=== PATIENT | female | born 1935 | race Caucasian/White ===

== ENCOUNTER 2017-01-01 09:20 | Emergency (ER) | payer MEDICARE, MEDICAID ==
[~2017-01-01] VITALS: Ht 175.3 cm; Wt 123.0 kg
[~2017-01-01 09:20] MED LIST: ACET325T38 PO; ALPR0.5T72 PO; APIX2.5T PO; APIX5TAB PO; ASP325TEC PO; ASP81CT PO; ASPI-9 PO; BUPR100T15 PO; CALC-656 PO; CALC625T66 PO; CHOL100011 PO; CHOL2000 PO; CITA10TA PO; CITA10TA70 PO; CITA20TA7 PO; CLIN300C3 PO; CNC1KV IJ; CND32T; CODE118S2 PO; CYAN100053 IJ; CYAN10007 IM; CYCL10TA9 PO; DIVA125C10 PO; DNPZ10T PO; DONE10TA41 PO; DVL125C PO; E400C PO; FIBER THERAPY PO; FLC100T1 PO; FLUT1DIS26; FLUT1DIS26 IH; GLIP-173 PO; GLIP10TA13; GLPZ10TCR PO; HYDR-34 PO; HYDR1TAB PO; INSASP10V SC; INSU100I10 SQ; INSU100I23 SQ; INSU100I29 SQ; INSU100V SQ; INSU100V6 SC; IPRA3AMP IH; IPRA3AMP19 IH; LACT1TAB13 PO; LEVE1U SQ; LEVO175T3 PO; LEVO175T5 PO; LEVO500T2 PO; LNS30CCR PO; LORA-794 PO; LORA0.5T PO; LVT.05T PO; METO-272 PO; METO-333 PO; METO25TA2 PO; METO50TA2 PO; MTP50T; MULT-608 PO; MULT-974 PO; NITR100C; OCCUVITE PO; OMEP20CA12 PO; OMEP20TA2 PO; ONDA4TAB8 PO; OSLT75CRX PO; OXYB15TA; OXYB5TAB9 PO; Oxygen; PHEN-640 PO; POLY17PO6 PO; PROP1TAB77 PO; SENN1TAB66 PO; SIMV40TA4 PO; TRAM-21 PO; TRAM50TA2 PO; VIT1TABL26 PO; VNL75CCR PO; WARF5TAB PO; WARF5TAB6 PO; WRF2.5T PO; WRF5T; WRF5T PO; [UNRECOGNIZED DRUG - CODE] MC
--- NOTE | 2017-01-01 10:18 | ED Lower Extremity ---
General Chief Complaint: Lower Extremity Stated Complaint: R ANKLE PAIN Nursing Triage Note: PT REPORTS SHE FELL YESTERDAY AND HURT HER R ANKLE. PT REPORTS PAIN HAS CONTINUED AND SHE HAS SWELLING TO R FOOT. PT DENIES HITTING HEAD OR LOC. Nursing Sepsis Screen: No Definite Risk Source: patient, family, EMS Exam Limitations: no limitations History of Present Illness Time seen by provider: 10:13 Initial Comments The patient is an 81-year-old intermediate resident known to me for many years. She apparently rolled her right ankle while still in the facility but going to [facility] on Monday. She did not fall to the floor as she was caught by staff. She however complained of ankle pain. They now note discoloration as well. Onset: last week Pain/Injury Location: right ankle Method of Injury: twisted Allergies and Home Medications Allergies Coded Allergies: Sulfa (Sulfonamide Antibiotics) (Verified Allergy, Unknown, 05/30/06) codeine (Verified Allergy, Unknown, 05/30/06) Home Medications Acetaminophen 325 Mg Tablet, 650 MG PO Q4H PRN for PAIN OR FEVER, (Reported) TAKES 2 (325MG) TABLETS Apixaban 5 Mg Tablet, 5 MG PO BID, (Reported) Bupropion HCl 100 Mg Tablet, 100 MG PO BID, (Reported) Cholecalciferol 1,000 Unit Capsule, 1,000 UNIT PO DAILY, (Reported) Cyanocobalamin 1,000 Mcg/Ml Inj, 1,000 MCG IJ MONTHLY, (Reported) Divalproex Sodium 125 Mg Cap.sprink, 125 MG PO QID, (Reported) Donepezil HCl 10 Mg Tablet, 10 MG PO HS, (Reported) Fluticasone/Salmeterol 1 Each Blst.w.dev, 1 PUFF IH BID, (Reported) Glipizide 10 Mg Tab.er.24, 10 MG PO DAILY, (Reported) Insulin Detemir 100 Unit/1 Ml Insuln.pen, 35 UNITS SQ HS, (Reported) Insulin Lispro 100 Unit/1 Ml Vial, 6 UNITS SQ AC, (Reported) Ipratropium/Albuterol Sulfate 3 Ml Ampul.neb, 3 ML IH RTQ2H PRN for SOA, #30 Prescribed by: PEPE HARMON on 04/08/16 0929 Lactobacillus Acidophilus 1 Each Tablet, 1 EACH PO TID, #30 Prescribed by: PEPE HARMON on 04/08/16928 Levofloxacin 500 Mg Tablet, 500 MG PO DAILY, #4 Prescribed by: PEPE HARMON on 04/08/16928 Levothyroxine Sodium 175 Mcg Tablet, 175 MCG PO DAILY, (Reported) Metoprolol Tartrate 50 Mg Tablet, 50 MG PO BID, (Reported) Multivitamin 1 Each Tablet, 1 TAB PO DAILY, (Reported) Omeprazole 20 Mg Capsule.dr, 20 MG PO DAILY, (Reported) Oxybutynin Chloride 5 Mg Tablet, 5 MG PO TID, (Reported) Phenazopyridine HCl 200 Mg Tablet, 200 MG PO TID PRN for URINARY PAIN, (Reported ) Polyethylene Glycol 3350 17 Gm Powd.pack, 17 GM PO Q48H, (Reported) GIVE AT 1700 Promethazine HCl/Codeine 118 Ml Syrup, 5-10 ML PO Q6HR PRN for COUGH, #8 Prescribed by: PEPE HARMON on 04/08/16928 Tramadol HCl 50 Mg Tablet, 50 MG PO DAILY, (Reported) Vit A,C & E/Lutein/Minerals 1 Each Tablet, 1 TAB PO DAILY, (Reported) Constitutional: see HPI EENTM: no symptoms reported Respiratory: no symptoms reported Cardiovascular: no symptoms reported Gastrointestinal: no symptoms reported Genitourinary: no symptoms reported Musculoskeletal: see HPI, joint pain, joint swelling Skin: change in color (right ankle) Psychiatric/Neurological: Other (poor memory) Past Idjfiym-Rzqahv-Sdhlho Hx Patient Social History Alcohol Use: Denies Use Recreational Drug Use: No Smoking Status: Former Smoker Type Used: Cigarettes Former Smoker/When Quit: Aug 23, 1974 2nd Hand Smoke Exposure: No Recent Foreign Travel: No Contact w/Someone Who Travel: No Recent Infectious Disease Expo: No Recent Hopitalizations: No (SURGERY BOTH KNEES, BOTH HIPS, CAATARACT SURGERY) Immunizations Up To Date Date of Pneumonia Vaccine: Mar 19, 2010 Date of Influenza Vaccine: Mar 04, 2016 Seasonal Allergies Seasonal Allergies: No Surgeries HX Surgeries: Yes (SURGERY BOTH KNEES, BOTH HIPS, CATARACT SURGERY) Surgeries: Appendectomy, Cardiac, CABG, Gallbladder, Hysterectomy, Joint Replacement Respiratory Hx Respiratory Disorders: Yes Respiratory Disorders: Pneumonia, COPD Cardiovascular Hx Cardiac Disorders: Yes (CABG) Cardiac Disorders: Coronary Artery Disease, High Cholesterol, Hypertension Neurological Hx Neurological Disorders: Yes Neurological Disorders: Dementia Reproductive System Hx Reproductive Disorders: No Sexually Transmitted Disease: No HIV/AIDS: No Female Reproductive Disorders: Denies BELL STAFF History: Hysterectomy Genitourinary Hx Genitourinary Disorders: Yes (STRESS INCONTINENCE) Gastrointestinal Hx Gastrointestinal Disorders: Yes Gastrointestinal Disorders: Gastroesophageal Reflux Musculoskeletal Hx Musculoskeletal Disorders: Yes Musculoskeletal Disorders: Arthritis Endocrine Hx Endocrine Disorders: Yes Endocrine Disorders: Diabetes, Insulin dep, Hypothyroidsim HEENT HX ENT Disorders: No Loss of Vision: Denies Hearing Impairment: Denies Cancer Hx Cancer: No Psychosocial Hx Psychiatric Problems: Yes Integumentary HX Skin/Integumentary Disorder: No Blood Transfusions Hx Blood Disorders: No Adverse Reaction to a Blood Tr: Yes Family Medical History Significant Family History: Heart Disease, Cancer, Hypertension Family Medial History: FHx: cancer G8 SISTER (PATIENT STATES THAT HER SISTER "HAD CANCER ALL OVER") Prostate cancer G8 BROTHER Physical Exam Vital Signs Vital Sign - Last 12Hours 01/01/17 09:30 Temp 97.9 Pulse 119 Resp 18 B/P (MAP) 171/93 Pulse Ox 95 Capillary Refill : Less Than 3 Seconds General Appearance: mild distress HEENT: normal ENT inspection Neck: full range of motion Cardiovascular: normal peripheral pulses, regular rate, rhythm, no edema, no gallop, no JVD, no murmur Respiratory: chest non-tender, lungs clear, normal breath sounds, no respiratory distress, no accessory muscle use Gastrointestinal: normal bowel sounds, non tender, soft, no organomegaly, no pulsatile mass Neurologic/Psychiatric: no motor/sensory deficits, alert, normal mood/affect Comments There are bilateral flatfeet. Bunions and hammertoes are noted. Multiple superficial skin NICKS are noted over the toes. There is 1+ swelling over the right ankle. There is redness and warmth from the ankle joint to a crew sock height. No ecchymosis is noted. Progress/Results/Core Measures Results/Orders Lab Results Laboratory Tests Test 01/01/17 09:35 01/01/17 11:05 Range/Units White Blood Count 10.5 4.3-11.0 10^3/uL Red Blood Count 4.19 L 4.35-5.85 10^6/uL Hemoglobin 11.4 L 11.5-16.0 G/DL Hematocrit 37 35-52 % Mean Corpuscular Volume 88 80-99 FL Mean Corpuscular Hemoglobin 27 25-34 PG Mean Corpuscular Hemoglobin Concent 31 L 32-36 G/DL Red Cell Distribution Width 16.2 H 10.0-14.5 % Platelet Count 215 130-400 10^3/uL Mean Platelet Volume 11.6 H 7.4-10.4 FL Neutrophils (%) (Auto) 70 42-75 % Lymphocytes (%) (Auto) 12 12-44 % Monocytes (%) (Auto) 18 H 0-12 % Eosinophils (%) (Auto) 1 0-10 % Basophils (%) (Auto) 0 0-10 % Neutrophils # (Auto) 7.4 1.8-7.8 X 10^3 Lymphocytes # (Auto) 1.3 1.0-4.0 X 10^3 Monocytes # (Auto) 1.9 H 0.0-1.0 X 10^3 Eosinophils # (Auto) 0.1 0.0-0.3 10^3/uL Basophils # (Auto) 0.0 0.0-0.1 10^3/uL Sodium Level 141 135-145 MMOL/L Potassium Level 3.8 3.6-5.0 MMOL/L Chloride Level 95 L 98-107 MMOL/L Carbon Dioxide Level 33 H 21-32 MMOL/L Anion Gap 13 5-14 MMOL/L Blood Urea Nitrogen 13 7-18 MG/DL Creatinine 0.73 0.60-1.30 MG/DL Estimat Glomerular Filtration Rate > 60 BUN/Creatinine Ratio 18 Glucose Level 251 H 70-105 MG/DL Calcium Level 8.7 8.5-10.1 MG/DL Total Bilirubin 1.2 H 0.1-1.0 MG/DL Aspartate Amino Transf (AST/SGOT) 13 5-34 U/L Alanine Aminotransferase (ALT/SGPT) 16 0-55 U/L Alkaline Phosphatase 57 40-136 U/L Total Protein 5.8 L 6.4-8.2 GM/DL Albumin 3.6 3.2-4.5 GM/DL My Orders Orders - IAIN VANEGAS MD Cbc With Automated Diff (01/01/17 10:11) Comprehensive Metabolic Panel (01/01/17 10:11) Ua Culture If Indicated (01/01/17 10:11) Ankle, Right, 3 Views (01/01/17 10:11) Vital Signs/I&O Vital Sign - Last 12Hours 01/01/17 09:30 Temp 97.9 Pulse 119 Resp 18 B/P (MAP) 171/93 Pulse Ox 95 Blood Pressure Mean: 119 Departure Communication Progress Notes My interpretation and subsequent radiology report indicates distal right fibular fracture. Impression Impression: Primary Impression: right distal fibula fracture Disposition: HOME, SELF-CARE Condition: Stable/Unchanged Departure-Patient Inst. Decision time for Depature: 11:22 Referrals: PEPE HARMON MD (PCP/Family) Primary Care Physician Patient Instructions: Ankle Fracture (DC) Add. Discharge Instructions: All discharge instructions reviewed with patient and/or family. Voiced understanding. Use boot when up and about. It will take 6 weeks or thereabouts for this to heal. Use Tylenol 650 up to 3 g daily for pain as needed IAIN VANEGAS MD Jan 01, 2017 10:18
[2017-01-01 10:22] LABS: BASOPHILS % (AUTO) 0 % (0-10); EOSINOPHILS # (AUTO) 0.1 10^3/uL (0.0-0.3); EOSINOPHILS % (AUTO) 1 % (0-10); LYMPHOCYTES # (AUTO) 1.3 X 10^3 (1.0-4.0); LYMPHOCYTES % (AUTO) 12 % (12-44); MEAN CORPUSCULAR HEMOGLOBIN 27 PG (25-34); MEAN CORPUSCULAR HGB CONC 31 G/DL (32-36); MEAN CORPUSCULAR VOLUME 88 FL (80-99); MEAN PLATELET VOLUME 11.6 FL (7.4-10.4); MONOCYTES # (AUTO) 1.9 X 10^3 (0.0-1.0); MONOCYTES % (AUTO) 18 % (0-12); NEUTROPHILS # (AUTO) 7.4 X 10^3 (1.8-7.8); NEUTROPHILS % (AUTO) 70 % (42-75); PLATELET COUNT 215 10^3/uL (130-400); RED BLOOD COUNT 4.19 10^6/uL (4.35-5.85); RED CELL DISTRIBUTION WIDTH 16.2 % (10.0-14.5); WHITE BLOOD COUNT 10.5 10^3/uL (4.3-11.0)
[2017-01-01 10:31] LABS: ALANINE AMINOTRANSFERASE 16 U/L (0-55); ALBUMIN 3.6 GM/DL (3.2-4.5); ANION GAP 13 MMOL/L (5-14); ASPARTATE AMINO TRANSFERASE 13 U/L (5-34); BILIRUBIN,TOTAL 1.2 MG/DL (0.1-1.0); BLOOD UREA NITROGEN 13 MG/DL (7-18); BUN/CREATININE RATIO 18; CALCIUM 8.7 MG/DL (8.5-10.1); CARBON DIOXIDE 33 MMOL/L (21-32); CHLORIDE 95 MMOL/L (98-107); CREATININE SERUM 0.73 MG/DL (0.60-1.30); GFR ESTIMATED > 60; GLUCOSE 251 MG/DL (70-105); POTASSIUM 3.8 MMOL/L (3.6-5.0); SODIUM 141 MMOL/L (135-145); TOTAL PROTEIN 5.8 GM/DL (6.4-8.2)
--- NOTE | 2017-01-01 10:54 | Diagnostic Imaging Report ---
INDICATION: Right ankle pain 3 views of the right ankle show a nondisplaced oblique fracture of the distal fibula. The medial malleolus appears to be grossly intact. IMPRESSION: Nondisplaced oblique fracture of the distal fibula Dictated by: Dictated on workstation # [id number]
[2017-01-01 11:29] LABS: BILIRUBIN,URINE 1+ (NEGATIVE); KETONES,URINE 2+ (NEGATIVE); LEUKOCYTE ESTERASE ,URINE 2+ (NEGATIVE); NITRITE,URINE POSITIVE (NEGATIVE); PH,URINE 6 (5-9); PROTEIN,URINE 2+ (NEGATIVE); UROBILINOGEN,URINE 4 MG/DL (NORMAL)
[2017-01-01] MEDS ORDERED: CEFD300C3 PO (12:44)
[2017-01-01 13:07] VITALS: BP 156/90
== END 2017-01-01 13:07 | disposition home or self-care (01) ==
LOC: EDUNIT# 09:20 → ER 09:21
DX: S82.831A Other fracture of upper and lower end of right fibula, initial encounter for closed fracture (principal); X50.0XXA Overexertion from strenuous movement or load, initial encounter; Y92.89 Other specified places as the place of occurrence of the external cause
CPT/HCPCS: 36415; 73610; 80053; 81000; 85025; 87088; 87186; 99283

== ENCOUNTER 2017-05-04 13:16 | Emergency (ER) | payer MEDICARE, MEDICAID ==
[~2017-05-04] VITALS: Ht 175.3 cm; Wt 123.0 kg
[~2017-05-04 13:16] MED LIST changes: +CEFD300C3 PO
[2017-05-04] MEDS ORDERED: TETANUS,DIPTH,PERTUSS P/F (BOOSTRIX) 0.5 ML VIAL IM STA (13:31)
--- NOTE | 2017-05-04 13:38 | ED Head Injury ---
General Chief Complaint: Trauma-Non Activation Stated Complaint: FALL Nursing Triage Note: PT TO [facility] WITH CC OF SAME LEVEL FALL WITH LAC TO POSTERIOR HEAD, NO BLEEDING AT THIS TIME. PT DENIES NECK OR BACK PAIN. DENIES ANY LOC. STAFF AT [facility] TOLD EMS THAT THE PT HAS NOT BEEN FEELING WELL FOR A COUPLE DAYS, COUGHING. Source: patient, EMS Exam Limitations: no limitations History of Present Illness Time seen by provider: 13:20 Initial Comments 81-year-old female patient presents to the emergency department via EMS with complaints of fall at the assisted living facility. Patient reportedly has a laceration to the left posterior scalp. Denies neck or back pain. Patient does have chronic lung disease and normally wears 2 L of oxygen at the facility. Patient apparently has not been feeling well for the last couple of days with cough and congestion. Patient denies shortness of air, chest pain, fever, headache. Occurred: just prior to arrival Location: occipital Method of Injury: fell Loss of Consciousness: no loss of consciousness Allergies and Home Medications Allergies Coded Allergies: Sulfa (Sulfonamide Antibiotics) (Verified Allergy, Unknown, 05/30/06) codeine (Verified Allergy, Unknown, 05/30/06) Home Medications Acetaminophen 325 Mg Tablet, 650 MG PO Q4H PRN for PAIN OR FEVER, (Reported) TAKES 2 (325MG) TABLETS Apixaban 5 Mg Tablet, 5 MG PO BID, (Reported) Bupropion HCl 100 Mg Tablet, 100 MG PO BID, (Reported) Cefdinir 300 Mg Capsule, 300 MG PO TWICE A DAY, #14 Prescribed by: IAIN VANEGAS on 01/01/17 1244 Cholecalciferol 1,000 Unit Capsule, 1,000 UNIT PO DAILY, (Reported) Cyanocobalamin 1,000 Mcg/Ml Inj, 1,000 MCG IJ MONTHLY, (Reported) Divalproex Sodium 125 Mg Cap.sprink, 125 MG PO QID, (Reported) Donepezil HCl 10 Mg Tablet, 10 MG PO HS, (Reported) Fluticasone/Salmeterol 1 Each Blst.w.dev, 1 PUFF IH BID, (Reported) Glipizide 10 Mg Tab.er.24, 10 MG PO DAILY, (Reported) Insulin Detemir 100 Unit/1 Ml Insuln.pen, 35 UNITS SQ HS, (Reported) Insulin Lispro 100 Unit/1 Ml Vial, 6 UNITS SQ AC, (Reported) Ipratropium/Albuterol Sulfate 3 Ml Ampul.neb, 3 ML IH RTQ2H PRN for SOA, #30 Prescribed by: PEPE HARMON on 04/08/16928 Lactobacillus Acidophilus 1 Each Tablet, 1 EACH PO TID, #30 Prescribed by: PEPE HARMON on 04/08/16928 Levofloxacin 500 Mg Tablet, 500 MG PO DAILY, #4 Prescribed by: PEPE HARMON on 04/08/16928 Levothyroxine Sodium 175 Mcg Tablet, 175 MCG PO DAILY, (Reported) Metoprolol Tartrate 50 Mg Tablet, 50 MG PO BID, (Reported) Multivitamin 1 Each Tablet, 1 TAB PO DAILY, (Reported) Omeprazole 20 Mg Capsule.dr, 20 MG PO DAILY, (Reported) Oxybutynin Chloride 5 Mg Tablet, 5 MG PO TID, (Reported) Phenazopyridine HCl 200 Mg Tablet, 200 MG PO TID PRN for URINARY PAIN, (Reported ) Polyethylene Glycol 3350 17 Gm Powd.pack, 17 GM PO Q48H, (Reported) GIVE AT 1700 Promethazine HCl/Codeine 118 Ml Syrup, 5-10 ML PO Q6HR PRN for COUGH, #8 Prescribed by: PEPE HARMON on 04/08/16928 Tramadol HCl 50 Mg Tablet, 50 MG PO DAILY, (Reported) Vit A,C & E/Lutein/Minerals 1 Each Tablet, 1 TAB PO DAILY, (Reported) Constitutional: No dizziness, No fever, malaise Eyes: Denies Blurred Vision, Denies Drainage, Denies Decreased Acuity, Denies Vision Changes, Glasses Ears, Nose, Mouth, Throat: denies ear pain, denies ear discharge, denies nose pain, denies epistaxis, denies mouth pain, denies throat pain Respiratory: cough, phlegm, No short of breath, No stridor, wheezing Cardiovascular: No chest pain, No palpitations, No syncope Gastrointestinal: No abdominal pain, No constipation, No diarrhea, No nausea, No vomiting Genitourinary: no symptoms reported Musculoskeletal: No back pain, No joint pain, No neck pain Skin: see HPI Psychiatric/Neurological: Denies Cognitive Dysfunction, Denies Headache, Denies Numbness, Denies Tingling, Denies Unable to Move Lower Ext, Denies Unable to Move Upper Ext, Denies Weakness, Denies Other (denies seizure) All Other Systems Reviewed Negative Unless Noted: Yes (Negative excepted noted.) Past Pdqubiq-Ubhqbk-Gdfalw Hx Patient Social History Type Used: Cigarettes Former Smoker, Quit: Oct 09, 1985 2nd Hand Smoke Exposure: No Recent Foreign Travel: No Contact w/Someone Who Travel: No Recent Infectious Disease Expo: No Recent Hopitalizations: No (SURGERY BOTH KNEES, BOTH HIPS, CAATARACT SURGERY) Immunizations Up To Date Tetanus Booster (TDap): Unknown Date of Pneumonia Vaccine: Mar 19, 2010 Date of Influenza Vaccine: Mar 04, 2016 Seasonal Allergies Seasonal Allergies: No Surgeries History of Surgeries: Yes (SURGERY BOTH KNEES, BOTH HIPS, CATARACT SURGERY) Surgeries: Appendectomy, Cardiac, CABG, Gallbladder, Hysterectomy, Joint Replacement Respiratory History of Respiratory Disorde: Yes Respiratory Disorders: Pneumonia, COPD Currently Using CPAP: Yes Currently Using BIPAP: No Cardiovascular History of Cardiac Disorders: Yes (CABG) Cardiac Disorders: Coronary Artery Disease, High Cholesterol, Hypertension Neurological History of Neurological Disord: Yes Neurological Disorders: Dementia Reproductive System Hx Reproductive Disorders: No Sexually Transmitted Disease: No HIV/AIDS: No Female Reproductive Disorders: Denies [employer] History: Hysterectomy Gastrointestinal History of Gastrointestinal Di: Yes Gastrointestinal Disorders: Gastroesophageal Reflux Musculoskeletal History of Musculoskeletal Dis: Yes Musculoskeletal Disorders: Arthritis Endocrine History of Endocrine Disorders: Yes Endocrine Disorders: Diabetes, Insulin dep, Hypothyroidsim HEENT Loss of Vision: Denies Hearing Impairment: Denies Cancer History of Cancer: No Psychosocial History of Psychiatric Problem: Yes Integumentary History of Skin or Integumenta: No Blood Transfusions History of Blood Disorders: No Adverse Reaction to a Blood Tr: Yes Reviewed Nursing Assessment Reviewed/Agree w Nursing PMH: Yes Family Medical History Significant Family History: Heart Disease, Cancer, Hypertension Family Medial History: FHx: cancer G8 SISTER (PATIENT STATES THAT HER SISTER "HAD CANCER ALL OVER") Prostate cancer G8 BROTHER Physical Exam Vital Signs Vital Sign - Last 12Hours 05/04/17 13:20 Temp 97.8 Pulse 110 Resp 20 B/P (MAP) 136/100 Pulse Ox 97 O2 Delivery Nasal Cannula O2 Flow Rate 2.00 Capillary Refill : Less Than 3 Seconds General Appearance: WD/WN, no apparent distress HEENT: PERRL/EOMI, normal ENT inspection, TMs normal, pharynx normal Neck: non-tender, full range of motion, supple, normal inspection Cardiovascular: normal peripheral pulses, no murmur, tachycardia Respiratory: chest non-tender, no respiratory distress, no accessory muscle use , decreased breath sounds, crackles Gastrointestinal: normal bowel sounds, non tender, soft, no organomegaly, No distended Back: normal inspection, no vertebral tenderness Extremities: normal range of motion, non-tender, normal inspection, normal capillary refill, pelvis stable, pedal edema (2+ pedal edema bilaterally to the level of the tibial tuberosity.) Psychiatric: alert, oriented x 3 Crainal Nerves: normal speech, PERRL, other (chronic [place].) Motor/Sensory: no motor deficit, no sensory deficit, no pronator drift Skin: normal color, warm/dry, other (1 cm laceration posterior left scalp) Terrie Coma Score Best Eye Response: (4) Open Spontaneously Best Verbal Response: (5) Oriented Best Motor Response: (6) Obeys Commands Terrie Total: 15 Laceration Repair : Wound Location: Scalp Wound Length (cm): 1 Wound's Depth, Shape: superficial, linear, contused tissue Wound Explored: clean Betadine Prep?: No (scrubbed with chlorasept and sterile saline) Staple Repair: Stapler 35W Sterile Dressing Applied?: Yes Progress 1 staple placed. wound dressed with 4x4 gauze and gauze roll. patient tolerated the procedure well. blood loss minimal. Progress/Results/Core Measures Results/Orders Lab Results Laboratory Tests Test 05/04/17 13:30 05/04/17 14:20 Range/Units White Blood Count 8.3 4.3-11.0 10^3/uL Red Blood Count 4.39 4.35-5.85 10^6/uL Hemoglobin 11.9 11.5-16.0 G/DL Hematocrit 39 35-52 % Mean Corpuscular Volume 88 80-99 FL Mean Corpuscular Hemoglobin 27 25-34 PG Mean Corpuscular Hemoglobin Concent 31 L 32-36 G/DL Red Cell Distribution Width 16.7 H 10.0-14.5 % Platelet Count 238 130-400 10^3/uL Mean Platelet Volume 10.5 H 7.4-10.4 FL Neutrophils (%) (Auto) 63 42-75 % Lymphocytes (%) (Auto) 22 12-44 % Monocytes (%) (Auto) 12 0-12 % Eosinophils (%) (Auto) 2 0-10 % Basophils (%) (Auto) 1 0-10 % Neutrophils # (Auto) 5.2 1.8-7.8 X 10^3 Lymphocytes # (Auto) 1.8 1.0-4.0 X 10^3 Monocytes # (Auto) 1.0 0.0-1.0 X 10^3 Eosinophils # (Auto) 0.2 0.0-0.3 10^3/uL Basophils # (Auto) 0.1 0.0-0.1 10^3/uL Sodium Level 144 135-145 MMOL/L Potassium Level 3.7 3.6-5.0 MMOL/L Chloride Level 93 L 98-107 MMOL/L Carbon Dioxide Level 40 H 21-32 MMOL/L Anion Gap 11 5-14 MMOL/L Blood Urea Nitrogen 13 7-18 MG/DL Creatinine 0.92 0.60-1.30 MG/DL Estimat Glomerular Filtration Rate 58 BUN/Creatinine Ratio 14 Glucose Level 218 H 70-105 MG/DL Calcium Level 9.1 8.5-10.1 MG/DL Total Bilirubin 0.6 0.1-1.0 MG/DL Aspartate Amino Transf (AST/SGOT) 16 5-34 U/L Alanine Aminotransferase (ALT/SGPT) 12 0-55 U/L Alkaline Phosphatase 56 40-136 U/L Total Protein 6.4 6.4-8.2 GM/DL Albumin 3.5 3.2-4.5 GM/DL Thyroid Stimulating Hormone (TSH) 0.93 0.35-4.94 UIU/ML Valproic Acid (Depakene) Level 39.7 L 50.0-100.0 UG/ML Urine Color YELLOW Urine Clarity VERY CLOUDY H Urine pH 6.5 5-9 Urine Specific [place] 1.015 L 1.016-1.022 Urine Protein 2+ H NEGATIVE Urine Glucose (UA) NEGATIVE NEGATIVE Urine Ketones 1+ H NEGATIVE Urine Nitrite NEGATIVE NEGATIVE Urine Bilirubin NEGATIVE NEGATIVE Urine Urobilinogen 4 H NORMAL MG/DL Urine Leukocyte Esterase 1+ H NEGATIVE Urine RBC (Auto) 2+ H NEGATIVE Urine RBC NONE /HPF Urine WBC 10-25 H /HPF Urine Crystals NONE /LPF Urine Bacteria LARGE H /HPF Urine Casts NONE /LPF Urine Mucus NEGATIVE /LPF Urine Culture Indicated YES My Orders Orders - ULISSES FITZPATRICK PA Cbc With Automated Diff (05/04/17 13:25) Comprehensive Metabolic Panel (05/04/17 13:25) Ua Culture If Indicated (05/04/17 13:25) Saline Lock/Iv-Start (05/04/17 13:25) Ct Head/Cervical Spine Wo (05/04/17 13:25) Chest 1 View, Ap/Pa Only (05/04/17 13:25) Valproic Acid (05/04/17 13:31) Dipht,Pertuss(Acell),Tet Adult (Boostrix (05/04/17 13:31) Thyroid Stimulating Hormone (05/04/17 13:32) Catheter(Urinary) Insert & Ass 03,15 (05/04/17 14:15) Urine Culture (05/04/17 14:20) Ondansetron Injection (Zofran Injectio (05/04/17 15:00) Ns Iv 1000 Ml (Sodium Chloride 0.9%) (05/04/17 14:58) Medications Given in ED Current Medications Medications Dose Ordered Sig/Sarah Route Start Time Stop Time Status Last Admin Dose Admin Ondansetron HCl 4 mg ONCE ONCE IVP 05/04/17 15:00 05/04/17 15:01 DC 05/04/17 15:05 4 MG Sodium Chloride 1,000 ml @ 0 mls/hr Q0M ONCE IV 05/04/17 14:58 05/04/17 14:59 DC 05/04/17 15:05 100 MLS/HR Vital Signs/I&O Vital Sign - Last 12Hours 05/04/17 05/04/17 05/04/17 13:20 14:41 15:15 Temp 97.8 97.8 97.5 Pulse 110 107 Resp 20 18 B/P (MAP) 136/100 Pulse Ox 97 98 O2 Delivery Nasal Cannula Nasal Cannula O2 Flow Rate 2.00 2.00 Blood Pressure Mean: 112 Diagnostic Imaging Diagonstic Imaging: CT Plain Films/CT/US/NM/MRI: c-spine, head Comments CT HEAD: The previous CT head exam performed on 08/23/2014 failed to show any sign of an acute intracranial abnormality. On this study, there is now a sizable area of soft tissue edema and perhaps hematoma formation along the periphery of the left parietal bone near the vertex of the skull. The bone windows show no sign of a skull fracture in this area. However, there does appear to be a small amount of hemorrhage in the extra-axial space along the periphery of the RIGHT parietal lobe at the level of the lateral ventricles. This suspected area of hemorrhage measures 6 x 30 mm in maximum transverse and AP dimensions. I suspect that this is in the subdural space and not epidural in nature. There is no parenchymal hemorrhage identified. The ventricles are not abnormally dilated and stable in size when compared to the prior exam. The cortical atrophy seen previously and the suspected areas of encephalomalacia in the periventricular white matter are also again evident and no different. The orbits are symmetrical and within normal limits. The sinuses where visualized are clear. IMPRESSION: 1. There is considerable edema/inflammation and perhaps hematoma formation involving the scalp over the left parietal bone. There is no sign of a fracture in this area, but there does appear to be a small amount of acute hemorrhage in the subdural space along the periphery of the right parietal lobe posteriorly. A short-term (less than 24 hours) follow-up CT head exam would be recommended for continued evaluation. 2. There is no acute intracranial abnormality noted otherwise. 3. These results will be discussed with CAMRON Mccurdy. CRITICAL FINDING CT CERVICAL SPINE: This exam is less than optimal due to motion artifact. The parasagittal images show severe degenerative disc and bony disease at C5-6 and C6-7 and to a lesser degree at C4 -5. There does not appear to be any high-grade central stenosis at any of these three levels. There is no fracture or acute bony abnormality appreciated. There is no sign of retropharyngeal edema. The thyroid gland was not well visualized. The lung apices are generally clear. IMPRESSION: 1. There is no evidence for an acute bony abnormality on this suboptimal exam. 2. These results will be discussed with CAMRON Mccurdy. Dictated on workstation # [id number] Reviewed: Discussed w/Radiologist (discussed with BAIRON Hancock and report reviewed by me) Diagonstic Imaging: Xray Plain Films/CT/US/NM/MRI: chest Comments FINDINGS: There are low lung volumes with cardiomegaly and pulmonary vascular congestion. Bibasilar infiltrates and effusions, left greater than right, also noted with edema seen throughout both lungs. There is no pneumothorax. Increased density seen about the right shoulder, stable from previous, perhaps loose bodies within the subcoracoid recess. IMPRESSION: 1. Findings of pulmonary edema with bibasilar atelectasis. 2. Bibasilar infiltrates and effusions, left worse than right. Followup recommended. Dictated by: Dictated on workstation # [id number] Reviewed: Reviewed by Me Departure Communication (Admissions) Progress Notes 1410 CT Head findings discussed with Dr. Hancock with findings concerning for subdural hematoma when compared with previous CT head. Recommends repeat CT head in 24 hours. 1415 Patient case discussed with Dr. Stark including history, vital signs, exam findings, laboratory findings, and diagnostic study findings. Dr. Stark recommends transfer to [facility] for further evaluation and management of subdural hematoma. 1425 patient is alert and oriented 3. NAD. CN 2-12 intact. No motor or sensory deficits noted. Diagnostic and laboratory findings discussed with the patient and family (son and grandson) at bedside. I discussed plan for transfer to [facility]. All verbalize understanding and agree with treatment plan. Patient denies pain. GCS 15. NAD. CN 2-12 intact. No motor or sensory deficits noted. 1440 laceration repair performed. GCS 15. Patient alert and oriented x3. NAD. Cranial nerves II through XII intact. No motor or sensory deficits noted. Proceed with transfer. 1515 EMS here to transfer patient. Patient A/Ox3, NAD. Cranial nerves II through XII intact. No motor or sensory deficits noted Impression Impression: Primary Impression: Acute subdural hematoma Additional Impressions: Laceration of scalp Qualified Codes: S01.01XA - Laceration without foreign body of scalp, initial encounter Fall Qualified Codes: W19.XXXA - Unspecified fall, initial encounter Pneumonia Qualified Codes: J18.9 - Pneumonia, unspecified organism Disposition: 02 XFER SHT-TRM HOSP Condition: Stable Transfer Time Spoke to Accepting Phy: 14:[address] Ojeda accepts patient to his service for subdural hematoma. Transfer Time: 15:15 Transfer Facility: [facility] Departure-Patient Inst. Referrals: PEPE HARMON MD (PCP/Family) Primary Care Physician ULISSES FITZPATRICK May 04, 2017 13:38
[2017-05-04 13:39] LABS: BASOPHILS # (AUTO) 0.1 10^3/uL (0.0-0.1); BASOPHILS % (AUTO) 1 % (0-10); EOSINOPHILS # (AUTO) 0.2 10^3/uL (0.0-0.3); EOSINOPHILS % (AUTO) 2 % (0-10); LYMPHOCYTES # (AUTO) 1.8 X 10^3 (1.0-4.0); LYMPHOCYTES % (AUTO) 22 % (12-44); MEAN CORPUSCULAR HEMOGLOBIN 27 PG (25-34); MEAN CORPUSCULAR HGB CONC 31 G/DL (32-36); MEAN CORPUSCULAR VOLUME 88 FL (80-99); MEAN PLATELET VOLUME 10.5 FL (7.4-10.4); MONOCYTES % (AUTO) 12 % (0-12); NEUTROPHILS # (AUTO) 5.2 X 10^3 (1.8-7.8); NEUTROPHILS % (AUTO) 63 % (42-75); PLATELET COUNT 238 10^3/uL (130-400); RED BLOOD COUNT 4.39 10^6/uL (4.35-5.85); RED CELL DISTRIBUTION WIDTH 16.7 % (10.0-14.5); WHITE BLOOD COUNT 8.3 10^3/uL (4.3-11.0)
[2017-05-04 13:57] LABS: ALBUMIN 3.5 GM/DL (3.2-4.5); BILIRUBIN,TOTAL 0.6 MG/DL (0.1-1.0); CALCIUM 9.1 MG/DL (8.5-10.1); CREATININE SERUM 0.92 MG/DL (0.60-1.30); POTASSIUM 3.7 MMOL/L (3.6-5.0); TOTAL PROTEIN 6.4 GM/DL (6.4-8.2)
[2017-05-04 14:17] LABS: THYROID STIMULATING HORMONE 0.93 UIU/ML (0.35-4.94); VALPROIC ACID 39.7 UG/ML (50.0-100.0)
--- NOTE | 2017-05-04 14:25 | Diagnostic Imaging Report ---
INDICATION: Not feeling well for several days. Cough. EXAMINATION: Single view chest dated 05/04/2017. COMPARISON: 04/06/2017. FINDINGS: There are low lung volumes with cardiomegaly and pulmonary vascular congestion. Bibasilar infiltrates and effusions, left greater than right, also noted with edema seen throughout both lungs. There is no pneumothorax. Increased density seen about the right shoulder, stable from previous, perhaps loose bodies within the subcoracoid recess. IMPRESSION: 1. Findings of pulmonary edema with bibasilar atelectasis. 2. Bibasilar infiltrates and effusions, left worse than right. Followup recommended. Dictated by: Dictated on workstation # [id number]
--- NOTE | 2017-05-04 14:29 | Diagnostic Imaging Report ---
PROCEDURE: CT head and CT cervical spine without contrast. TECHNIQUE: Multiple contiguous axial images were obtained through the brain and cervical spine without the use of intravenous contrast. Sagittal and coronal reformations through the cervical spine were then performed. INDICATION: Fell. CT HEAD: The previous CT head exam performed on 08/23/2014 failed to show any sign of an acute intracranial abnormality. On this study, there is now a sizable area of soft tissue edema and perhaps hematoma formation along the periphery of the left parietal bone near the vertex of the skull. The bone windows show no sign of a skull fracture in this area. However, there does appear to be a small amount of hemorrhage in the extra-axial space along the periphery of the RIGHT parietal lobe at the level of the lateral ventricles. This suspected area of hemorrhage measures 6 x 30 mm in maximum transverse and AP dimensions. I suspect that this is in the subdural space and not epidural in nature. There is no parenchymal hemorrhage identified. The ventricles are not abnormally dilated and stable in size when compared to the prior exam. The cortical atrophy seen previously and the suspected areas of encephalomalacia in the periventricular white matter are also again evident and no different. The orbits are symmetrical and within normal limits. The sinuses where visualized are clear. IMPRESSION: 1. There is considerable edema/inflammation and perhaps hematoma formation involving the scalp over the left parietal bone. There is no sign of a fracture in this area, but there does appear to be a small amount of acute hemorrhage in the subdural space along the periphery of the right parietal lobe posteriorly. A short-term (less than 24 hours) follow-up CT head exam would be recommended for continued evaluation. 2. There is no acute intracranial abnormality noted otherwise. 3. These results were discussed with CAMRON Mccurdy. CRITICAL FINDING CT CERVICAL SPINE: This exam is less than optimal due to motion artifact. The parasagittal images show severe degenerative disc and bony disease at C5-6 and C6-7 and to a lesser degree at C4-5. There does not appear to be any high-grade central stenosis at any of these three levels. There is no fracture or acute bony abnormality appreciated. There is no sign of retropharyngeal edema. The thyroid gland was not well visualized. The lung apices are generally clear. IMPRESSION: 1. There is no evidence for an acute bony abnormality on this suboptimal exam. 2. These results were discussed with CAMRON Mccurdy. Dictated by: Dictated on workstation # [id number]
[2017-05-04 14:31] LABS: BILIRUBIN,URINE NEGATIVE (NEGATIVE); KETONES,URINE 1+ (NEGATIVE); LEUKOCYTE ESTERASE ,URINE 1+ (NEGATIVE); NITRITE,URINE NEGATIVE (NEGATIVE); PH,URINE 6.5 (5-9); PROTEIN,URINE 2+ (NEGATIVE); UROBILINOGEN,URINE 4 MG/DL (NORMAL)
[2017-05-04] MEDS ORDERED: NS IV 1000 ML 1,000 ML IV ONE (14:58)
[2017-05-04] MEDS ORDERED: ONDANSETRON 4 MG/2 ML (SDV) Z0FRAN IVP ONE (15:00)
[2017-05-04 15:15] VITALS: BP 133/81
== END 2017-05-04 15:06 | disposition short-term general hospital (02) ==
LOC: EDUNIT# 13:16 → ER 13:17
DX: S06.5X0A Traumatic subdural hemorrhage without loss of consciousness, initial encounter (principal); S01.01XA Laceration without foreign body of scalp, initial encounter; J18.9 Pneumonia, unspecified organism; J44.9 Chronic obstructive pulmonary disease, unspecified; I25.10 Atherosclerotic heart disease of native coronary artery without angina pectoris; E78.00 Pure hypercholesterolemia, unspecified; I10 Essential (primary) hypertension; F03.90 Unspecified dementia, unspecified severity, without behavioral disturbance, psychotic disturbance, mood disturbance, and anxiety; K21.9 Gastro-esophageal reflux disease without esophagitis; E11.9 Type 2 diabetes mellitus without complications; E03.9 Hypothyroidism, unspecified; Z87.09 Personal history of other diseases of the respiratory system; Z79.01 Long term (current) use of anticoagulants; Z80.42 Family history of malignant neoplasm of prostate; Z79.4 Long term (current) use of insulin; Z87.891 Personal history of nicotine dependence; Z96.653 Presence of artificial knee joint, bilateral; Z96.643 Presence of artificial hip joint, bilateral; Z90.710 Acquired absence of both cervix and uterus; Z95.1 Presence of aortocoronary bypass graft; W18.30XA Fall on same level, unspecified, initial encounter; Y92.198 Other place in other specified residential institution as the place of occurrence of the external cause
CPT/HCPCS: 36415; 51702; 70450; 71010; 72125; 80053; 80164; 81000; 84443; 85025; 87077; 87088; 87186; 90715